=== PATIENT | male | born 2000 | race Caucasian/White ===

== ENCOUNTER 2021-10-17 13:35 | Outpatient (CLI) | payer OTHER ==
[2021-10-17] MEDS ORDERED: Gadobenate Dimeglumine 529 MG/1 ML (20ML VIAL) ONE (14:04)
[2021-10-17] MEDS ORDERED: Lidocaine 1% PF 10 ML AMP ONE (14:04)
[2021-10-17] MEDS ORDERED: EPINEPHrine 1 MG/ML AMP ONE (14:04)
[2021-10-17] MEDS ORDERED: Iopamidol 300 61% 50 ML VIAL FS ONE (14:04)
== END 2021-10-17 13:36 | disposition home or self-care (01) ==
LOC: RAD 13:35
PROVIDERS: ATTEND Family Medicine Sports Medicine
DX: M25.522 Pain in left elbow (principal)
CPT/HCPCS: 24220; A9577; J0171; J2001; Q9967